=== PATIENT | male | born 1990 ===

== ENCOUNTER 2021-03-27 22:28 | Emergency (ER) | payer SELFPAY ==
[~2021-03-27] VITALS: Ht 170.2 cm; Wt 77.1 kg
[2021-03-28] MEDS ORDERED: TETANUS-DIPTH-ACEL PERTUSSIS 0.5ML SYR Tdap IM ONE (01:45)
[2021-03-28] MEDS ORDERED: cefTRIAXone W LIDOCAINE 1 GM IM IM ONE (01:45)
[2021-03-28 03:10] VITALS: BP 141/84
[2021-03-28] MEDS ORDERED: cefTRIAXone SOD 1,000 MG VL IM ONE (03:30)
[2021-03-28] MEDS ORDERED: HYDROcodone-ACET 5/325MG TAB PO ONE (03:45)
== END 2021-03-28 04:26 | disposition home or self-care (01) ==
LOC: ER 22:28
DX: S41.111A Laceration without foreign body of right upper arm, initial encounter (principal); R51.9 Headache, unspecified; F10.129 Alcohol abuse with intoxication, unspecified; Y90.9 Presence of alcohol in blood, level not specified; V86.59XA Driver of other special all-terrain or other off-road motor vehicle injured in nontraffic accident, initial encounter; Y93.89 Activity, other specified; Y92.89 Other specified places as the place of occurrence of the external cause; Y99.8 Other external cause status
CPT/HCPCS: 12002; 29125; 70450; 72125; 73060; 73090; 90471; 90715; 96372; 99285; J0696